=== PATIENT | male | born 1970 | race Caucasian/White ===

== ENCOUNTER 2022-01-09 17:06 | Emergency (ER) | payer SELFPAY ==
[2022-01-09] MEDS ORDERED: Sodium Chloride 0.9% 1,000 ML IV ONE (17:31)
[2022-01-09] MEDS ORDERED: Sodium Chloride 0.9% 10 ML Syringe FLUSH PRN (17:31)
[2022-01-09] MEDS ORDERED: Sodium Chloride 0.9% 2.5 ML Syringe FLUSH PRN (17:31)
[2022-01-09 18:49] LABS: BLOOD UREA NITROGEN,BUN 8 mg/dL (7.0-18.0); CARBON DIOXIDE,CO2 25.8 mmol/L (21.0-32.0); CHLORIDE,CL 107 mmol/L (98-107); GLUCOSE RANDOM 94 mg/dL (74-106); POTASSIUM,K 3.8 mmol/L (3.5-5.1); SODIUM,NA 143 mmol/L (136-148)
[2022-01-09 18:50] LABS: ESTIMATED GFR 90 mL/min (>60)
[2022-01-09 18:51] LABS: CORONAVIRUS COVID-19 NAA NEGATIVE (NEGATIVE); INFLUENZA A NAA NEGATIVE (NEGATIVE); INFLUENZA B NAA NEGATIVE (NEGATIVE)
[2022-01-09] MEDS ORDERED: Iopamidol 755 MG/ML 500 ML Multipack Bottle IVPUSH STA (19:09)
== END 2022-01-09 20:48 | disposition home or self-care (01) ==
LOC: MW.ED 17:06
DX: K02.9 Dental caries, unspecified (principal); G25.89 Other specified extrapyramidal and movement disorders; Z20.822 Contact with and (suspected) exposure to COVID-19
CPT/HCPCS: 0240U; 36415; 70450; 70487; 71045; 80053; 80305; 81003; 83735; 84484; 85025; 85610; 86140; 99284; J3490; J7030; Q9967

== ENCOUNTER 2022-02-02 23:44 | Emergency (ER) | payer SELFPAY | END 2022-02-03 00:20 | disposition home or self-care (01) | LOC: MW.ED 23:44 | DX: R41.3 Other amnesia (principal) | CPT/HCPCS: 99284 ==